=== PATIENT | male | born 1975 | race Caucasian/White ===

== ENCOUNTER 2017-07-28 18:47 | Emergency (ER) | payer SELFPAY ==
[~2017-07-28] VITALS: Ht 177.8 cm; Wt 110.0 kg
[2017-07-28 18:49] VITALS: BP 144/92; PULSE 79; RESP 16; TEMP 98.9; O2SAT 96
--- NOTE | 2017-07-28 20:16 | PD ---
HPI Chief Complaint: Injury Time Seen by Provider: 20:10 Travel History International Travel<30 days: No Contact w/Intl Traveler<30days: No Traveled to known affect area: No History of Present Illness HPI 41-year-old white male presents to emergency department complains of left ankle pain after inversion injury 8 days ago. He states that he had stepped in a hole twisting his ankle. He does not recall any crack or pop. He states that he has been hobbling on it and felt it would get better. He presents today due to persistent discomfort to his medial ankle. He has noticed some bruising. He denies any numbness or tingling. Pain is mild. Worse with walking. Some relief with elevation. PFSH Past Medical History Diabetes: Yes (DIET CONTROLED) Patient Takes Glucophage: No Tetanus Vaccination: < 5 Years Past Surgical History Surgical History: No Previous Surgery Social History Alcohol Use: No Tobacco Use: Yes Substance Use: No Allergies-Medications (Allergen,Severity, Reaction): Coded Allergies: No Known Allergies (Unverified , 07/28/17) Reported Meds & Prescriptions Reported Meds & Active Scripts Active No Active Prescriptions or Reported Medications Review of Systems Except as stated in HPI: all other systems reviewed are Neg Physical Exam Narrative GENERAL: This is a well-nourished, well-developed patient, in no apparent distress. SKIN: No rashes, ecchymoses or lesions. Warm and dry. HEAD: Atraumatic. Normocephalic. EYES: PERRL, EOMI, no discharge or injection. No scleral icterus. EARS: Clear NOSE: Nasal turbinates appear normal. THROAT: Mucosa pink and moist. Airway patent. NECK: Trachea midline. supple, moves head freely. LUNGS: Clear to auscultation. CV: Regular in rhythm. ABDOMEN: Soft nontender. EXT: No clubbing cyanosis. Examination of the left lower extremity reveals some mild swelling and tenderness to the medial malleolus. There is no pain over the lateral malleolus. No pain in the heel or Achilles. No pain in the toes, forefoot, knee or hip. He has intact sensation with good distal pulses. The right lower extremity as well as upper extremities are unremarkable for acute bony tenderness or deformity. Data Data Last Documented VS Vital Signs Date Time Temp Pulse Resp B/P (MAP) Pulse Ox O2 Delivery O2 Flow Rate FiO2 07/28/17 18:49 98.9 79 16 144/92 (109) 96 Room Air Orders Orders Ankle, Complete ([id number]) (07/28/17 20:12) Ed Discharge Order (07/28/17 20:30) Splint Or Brace Apply/Monitor (07/28/17 20:30) MDM Medical Decision Making Medical Screen Exam Complete: Yes Emergency Medical Condition: Yes Medical Record Reviewed: Yes Interpretation(s) Left ankle: Negative for acute fracture. Differential Diagnosis MDM: High Differential diagnoses: Fracture, sprain, strain, dislocation, contusion, neurovascular injury Narrative Course X-rays negative for acute bony injury. Patient's encouraged to ice and elevate and take ibuprofen. Patient given Thomas wrap. This is left ankle sprain Diagnosis Primary Impression: Left ankle sprain Qualified Codes: S93.402A - Sprain of unspecified ligament of left ankle, initial encounter Patient Instructions: General Instructions Additional Instructions: Rest. Elevation. Ice for any acute swelling and pain. 3 Advil every 6 hours. Follow-up with a manager retail store in the next 3-7 days. Return to the ER for emergencies. Med/Other Pt SpecificInfo: Orthopedic Instructions Scripts No Active Prescriptions or Reported Meds Disposition: 01 DISCHARGE HOME Condition: Stable Jan Mensah Jul 28, 2017 20:16
--- NOTE | 2017-07-28 21:01 | RADRPT ---
EXAM DATE/TIME: 07/28/2017 20:18 [facility] COMPARISON: No previous studies available for comparison. INDICATIONS : Left ankle pain. Patient twisted it a week ago. MEDICAL HISTORY : None. SURGICAL HISTORY : None. ENCOUNTER: Initial ACUITY: 1 week PAIN SCORE: 5/10 LOCATION: Left ankle. FINDINGS: Three-view examination demonstrates mild soft tissue thickening in the medial lateral aspect of the a nkle. No radiopaque foreign bodies. The osseous structures are in normal alignment no evidence of f racture or dislocation. The ankle mortise is intact. CONCLUSION: Mild soft tissue swelling. No fracture seen. Koffi Almeida MD on July 28, 2017 at 20:55 Board Certified Radiologist. This report was verified electronically.
== END 2017-07-28 20:46 | disposition home or self-care (01) ==
LOC: NEPK 18:47
DX: S93.402A Sprain of unspecified ligament of left ankle, initial encounter (principal); E11.9 Type 2 diabetes mellitus without complications; Z72.0 Tobacco use; X50.1XXA Overexertion from prolonged static or awkward postures, initial encounter
CPT/HCPCS: 73610; 99283

== ENCOUNTER 2017-09-29 12:50 | Emergency (ER) | payer SELFPAY ==
[2017-09-29 12:52] VITALS: BP 168/99; PULSE 82; RESP 16; TEMP 98.4; O2SAT 98
[2017-09-29 14:08] LABS: AUTOMATED NEUTROPHIL # 2.9 TH/MM3 (1.8-7.7); BASOPHIL # 0.1 TH/MM3 (0-0.2); EOSINOPHIL # 0.2 TH/MM3 (0-0.4); EOSINOPHIL % 3.8 % (0.0-4.0); HEMATOCRIT 45.3 % (39.0-51.0); HEMOGLOBIN 15.4 GM/DL (13.0-17.0); LYMPH % 35.6 % (9.0-44.0); LYMPHOCYTE # 2.1 TH/MM3 (1.0-4.8); MEAN CELL VOLUME 88.4 FL (80.0-100.0); MEAN CORPUSCULAR HEMOGLOBIN 30.1 PG (27.0-34.0); MEAN CORPUSCULAR HGB CONC 34.1 % (32.0-36.0); MEAN PLATELET VOLUME 6.8 FL (7.0-11.0); MONO % 9.6 % (0.0-8.0); MONOCYTE # 0.6 TH/MM3 (0-0.9); PLATELET COUNT 188 TH/MM3 (150-450); RED BLOOD COUNT 5.12 MIL/MM3 (4.50-5.90); RED CELL DISTRIBUTION WIDTH 13.1 % (11.6-17.2); WHITE BLOOD COUNT 5.8 TH/MM3 (4.0-11.0)
[2017-09-29 14:24] LABS: ALBUMIN 3.6 GM/DL (3.4-5.0); ALT (GPT) 55 U/L (12-78); AST (GOT) 38 U/L (15-37); BICARBONATE 26.7 MEQ/L (21.0-32.0); BLOOD UREA NITROGEN 8 MG/DL (7-18); CALCIUM 8.6 MG/DL (8.5-10.1); CHLORIDE 105 MEQ/L (98-107); CREATININE 0.97 MG/DL (0.60-1.30); GLOMERULAR FILTRATION RATE 85 ML/MIN (>89); GLUCOSE,RANDOM 224 MG/DL (74-106); LIPASE 139 U/L (73-393); SODIUM (NA) 137 MEQ/L (136-145)
[2017-09-29 14:26] LABS: ALKALINE PHOSPHATASE 81 U/L (45-117); TOTAL BILIRUBIN ADULT 0.6 MG/DL (0.2-1.0); TOTAL PROTEIN 7.8 GM/DL (6.4-8.2)
[2017-09-29] MEDS ORDERED: METF500T PO (15:00)
--- NOTE | 2017-09-29 15:05 | PD ---
HPI . Tired Chief Complaint: Medical Clearance Time Seen by Provider: 14:48 Travel History International Travel<30 days: No Contact w/Intl Traveler<30days: No Traveled to known affect area: No History of Present Illness HPI Patient presents stating that he has felt tired for the last month. He states that he has a history of diabetes and has been off of his meds for the last year or so. He states that he was last seen by primary care provider probably 2 or more years ago. His diabetes has been treated in the past with a couple of different oral medications. He denies any associated pain. Symptoms are very mild. Symptoms have been constant and are getting progressively worse. PFSH Past Medical History Diabetes: Yes (DIET CONTROLED) Patient Takes Glucophage: No Influenza Vaccination: No Past Surgical History Tonsillectomy: Yes (T&A) Social History Alcohol Use: No Tobacco Use: Yes Substance Use: No Allergies-Medications (Allergen,Severity, Reaction): Coded Allergies: No Known Allergies (Unverified , 09/29/17) Reported Meds & Prescriptions Reported Meds & Active Scripts Active Metformin (Metformin HCl) 500 Mg Tab 500 Mg PO BIDPC Review of Systems Except as stated in HPI: all other systems reviewed are Neg General / Constitutional: Positive: Other (fatigue) Physical Exam Narrative GENERAL: Awake and alert and in no acute distress. SKIN: Warm and dry. Normal color and turgor. HEAD: Normocephalic/atraumatic. EYES: Pupils are equal. Extraocular movements are intact. ENT: Mucous membranes are moist. No skull of ketones. NECK: Normal range of motion. CARDIOVASCULAR: Regular rate and rhythm. Sounds normal. RESPIRATORY: Nonlabored respirations. Lungs are clear. ABDOMEN: Abdomen is soft. Completely MUSCULOSKELETAL: Atraumatic. NEUROLOGICAL: Nonfocal. PSYCHIATRIC: Appropriate mood and affect. Data Data Last Documented VS Vital Signs Date Time Temp Pulse Resp B/P (MAP) Pulse Ox O2 Delivery O2 Flow Rate FiO2 09/29/17 12:52 98.4 82 16 168/99 (122) 98 Orders Orders Complete Blood Count With Diff (09/29/17 13:13) Comprehensive Metabolic Panel (09/29/17 13:13) Lipase (09/29/17 13:13) Urinalysis - C+S If Indicated (09/29/17 13:13) Ed Discharge Order (09/29/17 15:01) Labs Laboratory Tests Test 09/29/17 13:55 White Blood Count 5.8 TH/MM3 Red Blood Count 5.12 MIL/MM3 Hemoglobin 15.4 GM/DL Hematocrit 45.3 % Mean Corpuscular Volume 88.4 FL Mean Corpuscular Hemoglobin 30.1 PG Mean Corpuscular Hemoglobin Concent 34.1 % Red Cell Distribution Width 13.1 % Platelet Count 188 TH/MM3 Mean Platelet Volume 6.8 FL Neutrophils (%) (Auto) 50.0 % Lymphocytes (%) (Auto) 35.6 % Monocytes (%) (Auto) 9.6 % Eosinophils (%) (Auto) 3.8 % Basophils (%) (Auto) 1.0 % Neutrophils # (Auto) 2.9 TH/MM3 Lymphocytes # (Auto) 2.1 TH/MM3 Monocytes # (Auto) 0.6 TH/MM3 Eosinophils # (Auto) 0.2 TH/MM3 Basophils # (Auto) 0.1 TH/MM3 CBC Comment DIFF FINAL Differential Comment Blood Urea Nitrogen 8 MG/DL Creatinine 0.97 MG/DL Random Glucose 224 MG/DL Total Protein 7.8 GM/DL Albumin 3.6 GM/DL Calcium Level 8.6 MG/DL Alkaline Phosphatase 81 U/L Aspartate Amino Transf (AST/SGOT) 38 U/L Alanine Aminotransferase (ALT/SGPT) 55 U/L Total Bilirubin 0.6 MG/DL Sodium Level 137 MEQ/L Potassium Level 4.1 MEQ/L Chloride Level 105 MEQ/L Carbon Dioxide Level 26.7 MEQ/L Anion Gap 5 MEQ/L Estimat Glomerular Filtration Rate 85 ML/MIN Lipase 139 U/L [facility] Medical Decision Making Medical Screen Exam Complete: Yes Emergency Medical Condition: Yes Differential Diagnosis Differential diagnosis of weakness includes but is not limited to infection, CVA , electrolyte disturbance, renal failure, hypoglycemia, UTI, ACS, acute blood loss Narrative Course Patient presents complaining with feeling tired. He is diabetic. He has been noncompliant with treatment. He does not have any concerning exam findings. CBC & BMP Diagram 09/29/17 13:55 Total Protein 7.8, Albumin 3.6, Calcium Level 8.6, Alkaline Phosphatase 81, Aspartate Amino Transf (AST/SGOT) 38 H, Alanine Aminotransferase (ALT/SGPT) 55, Total Bilirubin 0.6 This patient needs to see a primary care provider. I am referring him to the [facility]. I will give him a prescription for metformin. Diagnosis Primary Impression: Diabetes mellitus Qualified Codes: E11.9 - Type 2 diabetes mellitus without complications Referrals: [facility] 1 day Patient Instructions: General Instructions, Type 2 Diabetes in Adults (ED) Departure Forms: Tests/Procedures Scripts Metformin (Metformin) 500 Mg Tab 500 MG PO BIDPC for Blood Sugar Management, #60 TAB 0 Refills Prov: Katelyn Chauhan MD 09/29/17 Disposition: 01 DISCHARGE HOME Condition: Stable Katelyn Chauhan MD Sep 29, 2017 15:04
[2017-09-29 15:36] LABS: AMORPHOUS SEDIMENT, URINE FEW; BILIRUBIN, URINE NEG (NEG); BLOOD, URINE NEG (NEG); GLUCOSE,URINE 1000 mg/dL (NEG); KETONE, URINE TRACE mg/dL (NEG); MUCUS URINE FEW /lpf (OCC); NITRITE,URINE NEG (NEG); PH, URINE 5.5 (5.0-8.5); SQUAMOUS EPITHELIAL CELL URINE <1 /hpf (0-5); URINE COLOR YELLOW (YELLW/STRAW); URINE LEUKOCYTE ESTERASE NEG (NEG)
== END 2017-09-29 15:17 | disposition home or self-care (01) ==
LOC: NEPD 12:50
DX: E11.9 Type 2 diabetes mellitus without complications (principal); Z72.0 Tobacco use; Z79.84 Long term (current) use of oral hypoglycemic drugs
CPT/HCPCS: 80053; 81001; 83690; 85025; 99283